=== PATIENT | female | born 1960 | race Caucasian/White ===

== ENCOUNTER 2017-06-14 08:04 | Day surgery (SDC) | payer BC ==
--- NOTE | 2017-05-23 16:02 | HP ---
PREOPERATIVE HISTORY AND PHYSICAL: DATE OF SURGERY: 06/14/17 CHIEF COMPLAINT: Right wrist pain. HISTORY OF PRESENT ILLNESS: Monica is a 56-year-old woman, who suffered a fracture of her right distal radius about 15 years ago. The fracture healed fine, but in the last year she has had pain in the right wrist. She was diagnosed with de Quervain's tenosynovitis. She has had 2 injections. These gave her relief, but she no longer has relief and now presents for surgery for right de Quervain's release. PAST MEDICAL HISTORY: Hepatitis C, which has been treated and resolved. History of renal failure, which is resolved. MEDICATIONS: Singulair 10 mg p.o. daily. ALLERGIES: None. REVIEW OF SYSTEMS: Positive for seasonal allergies. Otherwise, negative for cephalic, cardiovascular, respiratory, gastrointestinal, genitourinary, other musculoskeletal, skin, neurologic, endocrine, and hematologic symptoms. PHYSICAL EXAMINATION GENERAL: She is a healthy appearing, very pleasant female in minimal distress at rest. VITAL SIGNS: Height is 62 inches, weight 125 pounds. Pulse 80, blood pressure 116/78. HEENT: Exam is unremarkable. She has good range of motion of her neck without pain. No masses are palpated. Her eye movements are concentric. LUNGS: Clear to auscultation. Good inspiratory effort. No wheezing. CARDIAC: Regular rate and rhythm without murmur. PERIPHERAL VASCULAR: She has palpable pulses and no peripheral edema. EXTREMITIES: She has positive Duke's test at the right wrist. Tenderness at the radial styloid. Neurovascular function is intact. NEUROLOGIC: She is alert and oriented without focal deficit. IMPRESSION: Right de Quervain's tenosynovitis. PLAN: For right de Quervain's release. The surgical procedure, risks, and benefits were explained to the patient today and she agrees to proceed. I will see her back in followup approximately 10 days postop. I did prescribe her tramadol for postop pain control. [id number]/[facility] #: [id number] MTDD
[~2017-06-14 08:04] MED LIST: Buffered Lidocaine 0.9% SYRIN* 5 ML/SYR SYRINGE INTRADERM ONE
[2017-06-14] MEDS ORDERED: Lidocaine 1% INJ* 10 MG/ML 30 ML SDV ONE (08:24)
[2017-06-14] MEDS ORDERED: Midazolam* 1 MG/ML 2 ML VIAL (2 MG) ONE (09:11)
[2017-06-14] MEDS ORDERED: fentaNYL* 50 MCG/ML 2 ML VIAL (100 MCG VIAL) ONE (09:11)
[2017-06-14] MEDS ORDERED: Naloxone* 0.4 MG/ML 1 ML VIAL IV PRN (09:33)
[2017-06-14] MEDS ORDERED: Ondansetron INJ* 2 MG/ML VIAL IV PRN (09:33)
[2017-06-14] MEDS ORDERED: Acetaminophen TAB* 325 MG PO PRN (09:33)
[2017-06-14] MEDS ORDERED: PROCHLORPERAZINE INJ 5 MG/ML 2 ML VIAL IV PRN (09:33)
[2017-06-14] MEDS ORDERED: Propofol* 10 MG/ML 20 ML BTL IV PUSH ONE (09:42)
[2017-06-14] MEDS ORDERED: Lidocaine 2% PF * 5 ML VIAL ONE (09:42)
[2017-06-14] MEDS ORDERED: Ketorolac INJ* 30 MG/ML 1 ML VIAL ONE (09:42)
[2017-06-14 10:23] VITALS: BP 112/53
--- NOTE | 2017-06-15 04:31 | OP ---
DATE OF OPERATION: 06/14/17 [facility] DATE OF : 58 SURGEON: Joselin Silverio MD TELEPHONE ADVICE NURSE: REYNALDO Lennon ANESTHESIA: Local MAC. PRE-OP DIAGNOSIS: Right de Quervain's tenosynovitis. POST-OP DIAGNOSIS: Right de Quervain's tenosynovitis. OPERATIVE PROCEDURE: Right de Quervain's release. ESTIMATED BLOOD LOSS: Zero. TOURNIQUET TIME: About 5 minutes. INDICATIONS FOR PROCEDURE: Monica is a 56-year-old female with radial sided wrist pain, which has failed conservative treatment. She presents for de Quervain's release. DESCRIPTION OF PROCEDURE: The patient was brought to the operating room, was given a sedation anesthetic and a local infiltration of 10 cc of 1% plain lidocaine on the radial aspect of the right wrist. The skin of her right upper extremity was prepped and draped in the usual sterile fashion. The hand and forearm were exsanguinated and the tourniquet elevated to 250 mmHg. A longitudinal incision was made centered at the tip of the radial styloid. We dissected bluntly through the subcutaneous tissue. The branches of the radial sensory nerves were located and then retracted by the surgical attendant Alice Adame. The first dorsal compartment was incised longitudinally, completely releasing the APL and EPB tendons which were in good condition. The wound was irrigated and the skin edges were reapproximated with 4-0 nylon suture. The wound was dressed with Xeroform, 4x4, Webril and an Carlitos wrap. The patient tolerated the procedure well and was brought to the recovery room in good condition. [id number]/[facility] #: [id number] MTDD
== END 2017-06-14 10:37 | disposition home or self-care (01) ==
LOC: OREAST 08:04
PROVIDERS: ATTEND Orthopaedic Surgery
DX: M65.4 Radial styloid tenosynovitis [de Quervain] (principal)
CPT/HCPCS: J1885; J2250; J2704; J3010